=== PATIENT | female | born 1970 | race Two or more races ===

== ENCOUNTER 2024-05-15 18:35 | Emergency (ER) | payer OTHER ==
[~2024-05-15] VITALS: Ht 157.5 cm; Wt 68.0 kg
[~2024-05-15 18:35] MED LIST: CRESTOR10 MG; FENOFIBRATE50 MG; MORGIDOX100 MG PO; NAPR500T14 PO
[2024-05-15] MEDS ORDERED: DEXTROSE 5 % AND 0.9 % NACL 1,000 ML IV STA (20:15)
[2024-05-15 20:41] LABS: HEMATOCRIT 38.5 % (36.0-45.00); HEMOGLOBIN 13.1 g/dL (12.0-15.00); MEAN CELL VOLUME 87.5 fL (80.00-100.00); MEAN CORPUSCULAR HEMOGLOBIN 29.8 pg (27.00-32.0); PLATELET COUNT 363 K/uL (150-450); RED CELL DISTRIBUTION WIDTH 14.8 % (11.5-14.5)
[2024-05-15 21:03] LABS: CALCIUM 10.3 mg/dL (8.5-10.1); CREATININE SERUM 0.85 mg/dL (0.55-1.02); GFR 69.7; POTASSIUM 4.33 mEq/L (3.5-5.1)
[2024-05-15 21:54] LABS: PH,URINE 5.5 (5.0-8.0); URINE APPEARANCE Clear; URINE BILIRRUBIN Negative (NEGATIVE); URINE BLOOD Moderate; URINE COLOR Yellow; URINE GLUCOSE Negative (NEGATIVE); URINE LEUKOCYTE Negative; URINE NITRATE Negative; URINE PROTEIN Negative (NEGATIVE); URINE UROBILINOGEN 0.2 E.U./dl
[2024-05-15 22:00] LABS: URINE BACTERIA 520.3 uL (0.0-1933); URINE EPITHELIAL CELLS 29.3 uL (0.0-38.8); URINE RBC 134.6 uL (0.0-20.8); URINE WBC 20.8 uL (0.0-23.2)
== END 2024-05-16 00:47 | disposition home or self-care (01) ==
LOC: ER 18:36
PROVIDERS: Emergency Medicine
DX: K52.89 Other specified noninfective gastroenteritis and colitis (principal); A08.8 Other specified intestinal infections

== ENCOUNTER 2024-12-21 12:55 | Emergency (ER) | payer OTHER ==
[~2024-12-21] VITALS: Ht 157.5 cm; Wt 70.3 kg
[2024-12-21] MEDS ORDERED: ONDANSETRON HCL 2 MG/ML VIAL ONE (13:43)
[2024-12-21] MEDS ORDERED: FAMOTIDINE/PF 20 MG/2 ML VIAL ONE (13:43)
[2024-12-21] MEDS ORDERED: BUTALB/ACETAMINOPHEN/CAFFEINE 1 TAB TABLET PO ONE ×2 (13:43→13:45)
[2024-12-21] MEDS ORDERED: 0.9 % SODIUM CHLORIDE 1,000 ML IV ONE (13:45)
[2024-12-21] MEDS ORDERED: FAMOtidine 10 MG/ML (4ML VIAL) IV ONE (13:45)
[2024-12-21] MEDS ORDERED: ONDANSETRON HCL 2 MG/ML VIAL IV ONE (13:45)
[2024-12-21 14:30] LABS: HEMATOCRIT 34.2 % (36.0-45.00); HEMOGLOBIN 12.4 g/dL (12.0-15.00); MEAN CELL VOLUME 85.8 fL (80.00-100.00); MEAN CORPUSCULAR HEMOGLOBIN 31.1 pg (27.00-32.0); MEAN CORPUSCULAR HGB CONC 36.2 g/dl (32.0-36.0); PLATELET COUNT 204 K/uL (150-450); RED BLOOD COUNT 3.98 M/uL (4.00-6.00); RED CELL DISTRIBUTION WIDTH 14.5 % (11.5-14.5)
[2024-12-21] MEDS ORDERED: PEPCID AC20 MG PO (14:58)
[2024-12-21] MEDS ORDERED: OSEL75CA PO (14:58)
[2024-12-21] MEDS ORDERED: ZOFRAN8 MG PO (14:58)
== END 2024-12-21 15:37 | disposition home or self-care (01) ==
LOC: ER 12:57
PROVIDERS: General Practice
DX: J10.1 Influenza due to other identified influenza virus with other respiratory manifestations (principal); R11.10 Vomiting, unspecified; R50.9 Fever, unspecified

== ENCOUNTER 2025-07-06 08:45 | Inpatient (IN) | payer OTHER ==
[~2025-07-06] VITALS: Ht 157.5 cm; Wt 68.0 kg
[~2025-07-06 08:45] MED LIST changes: +OSEL75CA PO; +PEPCID AC20 MG PO; +ZOFRAN8 MG PO
[2025-07-06 10:39] VITALS: BP 130/85
[2025-07-09] MEDS ORDERED: CEFOXITIN SODIUM 2,000 MG VIAL IV ONE (11:15)
[2025-07-09] MEDS ORDERED: POVIDONE-IODINE 118 ML BOTT TOP ONE (11:15)
[2025-07-09] MEDS ORDERED: MORPHINE SULFATE 4 MG/ML VIAL IV ONE ×2 (13:15→14:10)
[2025-07-09] MEDS ORDERED: MORPHINE SULFATE 4 MG/ML VIAL IV SCH (14:18)
[2025-07-09] MEDS ORDERED: NAPROXEN 500 MG TABLET PO SCH (14:19)
[2025-07-09] MEDS ORDERED: RINGERS SOLUTION,LACTATED 1,000 ML IV SCH (14:30)
[2025-07-09] MEDS ORDERED: MORPHINE SULFATE 4 MG/ML CARTRIDGE IV SCH (17:00)
[2025-07-09] MEDS ORDERED: PROMETHAZINE HCL 50 MG/ML AMPUL IV SCH (20:30)
[2025-07-10 01:16] VITALS: BP 137/80; O2SAT 97
[2025-07-10 02:52] LABS: BASO % 0.2 % (0.1-1.2); EOS # 0.00 (0.04-0.54); EOS % 0.0 % (0.7-7.0); LYMPH # 0.50 (1.18-3.74); LYMPH % 3.8 % (19.3-53.1); MEAN PLATELET VOLUME 9.70 fl (9.4-12.4); MONO # 0.38 (0.24-0.82); MONO % 2.9 % (4.7-12.5); NEUT # 12.39 (1.56-6.13); NEUT % 92.8 % (34.0-71.1); RED CELL DISTRIBUTION WIDTH 13.4 % (11.6-14.4)
[2025-07-10 08:31] VITALS: BP 116/69
[2025-07-10] MEDS ORDERED: NAPR500T14 PO (08:42)
[2025-07-10] MEDS ORDERED: Tylenol #3 PO (08:42)
[2025-07-10] MEDS ORDERED: PHENERGAN25 MG PO (08:44)
[2025-07-10] MEDS ORDERED: ACETAMINOPHEN WITH CODEINE 1 UDTAB TABLET PO NR (08:45)
[2025-07-10] MEDS ORDERED: MORPHINE SULFATE 4 MG/ML CARTRIDGE IV PRN (09:00)
[2025-07-10] MEDS ORDERED: PROMETHAZINE HCL 50 MG/ML AMPUL IM PRN ×2 (09:00→09:15)
[2025-07-10 13:42] VITALS: BP 116/72
[2025-07-10 16:00] VITALS: BP 140/78
[2025-07-11 00:53] VITALS: BP 144/79
[2025-07-11 08:54] VITALS: BP 136/85
[2025-07-11] MEDS ORDERED: PEPCID AC20 MG PO (12:22)
[2025-07-11] MEDS ORDERED: NAPROXEN500 MG PO (12:23)
== END 2025-07-11 12:44 | disposition home or self-care (01) | DRG 743 ==
LOC: OB/GYN 07-09 08:45 → O/R 07-09 09:20 → OB/GYN 07-09 15:12
PROVIDERS: ADMIT Obstetrics & Gynecology; ATTEND Obstetrics & Gynecology
PROC: 0UT77ZZ Resection of Bilateral Fallopian Tubes, Via Natural or Artificial Opening (ICD-10-PCS; 2025-07-09)
PROC: 0UT27ZZ Resection of Bilateral Ovaries, Via Natural or Artificial Opening (ICD-10-PCS; 2025-07-09)
PROC: 0JQC0ZZ Repair Pelvic Region Subcutaneous Tissue and Fascia, Open Approach (ICD-10-PCS; 2025-07-09)
PROC: 0USG0ZZ Reposition Vagina, Open Approach (ICD-10-PCS; 2025-07-09)
PROC: 0TJB8ZZ Inspection of Bladder, Via Natural or Artificial Opening Endoscopic (ICD-10-PCS; 2025-07-09)
PROC: 0UT97ZZ Resection of Uterus, Via Natural or Artificial Opening (ICD-10-PCS; principal; 2025-07-09 08:45)
DX: N80.03 Adenomyosis of the uterus (principal); N81.3 Complete uterovaginal prolapse; N95.0 Postmenopausal bleeding; N72 Inflammatory disease of cervix uteri; N83.311 Acquired atrophy of right ovary; N83.312 Acquired atrophy of left ovary